=== PATIENT | male | born 1975 | race Caucasian/White ===

== ENCOUNTER → 2020-06-05 | Day surgery (SDC) | payer OTHER ==
[~2020-06-05] MED LIST: CLARITIN10 M2 PO; NORCO 5-325 TA1 EACH PO; ONDANSETRON ODT8 MG PO; PROAIR HFA8.5 GM INH
[2020-06-05 11:28] LABS: HCT 43.9 % (42.0-52.0); HGB 14.7 g/dl (13.2-18.0); MCH 27.4 pg (25.0-31.0); MCHC 33.5 g/dL (32.0-36.0); MCV 81.8 fL (78.0-100.0); MPV 10.7 fL (6.0-9.5); RBC 5.37 M/uL (4.70-6.00); RDW 13.4 % (11.5-14.0); WBC 8.7 K/uL (4.0-10.5)
[2020-06-05 11:50] LABS: BUN/CREAT RATIO (CALC) 13.9 RATIO; CREATININE 0.79 mg/dL (0.67-1.17); POTASSIUM 4.1 mmol/L (3.5-5.1)
== END | disposition home or self-care (01) ==
LOC: FAS 10:04
PROVIDERS: Surgery
DX: K64.1 Second degree hemorrhoids (principal); J45.909 Unspecified asthma, uncomplicated; Z20.822 Contact with and (suspected) exposure to COVID-19; Z87.09 Personal history of other diseases of the respiratory system; Z82.49 Family history of ischemic heart disease and other diseases of the circulatory system; Z79.899 Other long term (current) drug therapy
CPT/HCPCS: 36415; 80048; J1100; J2250; J2704; J7120